=== PATIENT | male | born 1965 | race Caucasian/White ===

== ENCOUNTER 2019-07-22 13:41 | Emergency (ER) | payer OTHER ==
[~2019-07-22] VITALS: Ht 175.3 cm; Wt 120.2 kg
[~2019-07-22 13:41] MED LIST: NOHOMEMEDICATIONS
[2019-07-22] MEDS ORDERED: NAPROSYN500 MG PO (15:06)
[2019-07-22] MEDS ORDERED: KEFLEX500 M1 PO (15:06)
[2019-07-22 15:46] VITALS: BP 122/75
== END 2019-07-22 15:47 | disposition home or self-care (01) ==
LOC: ER 13:41
DX: L02.811 Cutaneous abscess of head [any part, except face] (principal)